=== PATIENT | female | born 1960 | race Caucasian/White ===

== ENCOUNTER 2016-06-30 05:46 | Inpatient (IN) | payer OTHER ==
[2016-06-27 09:08] VITALS: BMI 20.6
--- NOTE | 2016-06-27 15:33 | PREOPHP ---
DATE OF ADMISSION: 06/30/2016 Patient to have surgery with Dr. Vinicius Kendrick on 06/30/2016. REASON FOR CONSULTATION: Consultation requested by Dr. Vinicius Kendrick for medical evaluation and cl earance of a 56-year-old woman about to undergo a decompressive laminectomy L4 and microdiskectomy at L4 and L5. Thank you, Dr. Kendrick, for allowing us to participate in the care of this patient. HISTORY OF PRESENT ILLNESS: Cristine Modi is a 56-year-old woman with problems with her back for a whil e now, secondary to a work injury. She is currently being admitted for correction of the above. In addition to her back issues, she has had arthroscopic surgery x2 on her left knee and open x3. S he has also had a hysterectomy and had an ovary removed. She also had breast augmentation and appen chica surgery. She has had 3 deliveries and they have all been vaginal. She has fractured her right foot toes several times. Other than that, she has really not had any significant medical hospitaliz ations. MEDICATIONS: She takes the following medications: 1. Trazodone 100 mg a day. 2. Gabapentin 300 mg a day. 3. Synthroid 125 mcg per day. 4. Duloxetine 90 mg per day, 60+30. 5. Actonel 5 mg a day. ALLERGIES: SHE IS SENSITIVE TO MORPHINE, and has no other allergies, to her knowledge. SOCIAL HISTORY: The patient is , has 3 sons, 5 grandchildren, all in good health. She does not smoke. Alcohol socially. She does not drink coffee. Usually has no difficulty sleeping at [facility]. FAMILY HISTORY: Father at age 77 of MS. Mother is 71, in good health. Two siblings are in go od health Other than that, she knows of no family history of diabetes, heart, cancer, hypertension, stroke or thyroid issues. REVIEW OF SYSTEMS: HEENT: Periodic migraine headaches. CARDIORESPIRATORY: Denies any significant chest pain or shortness of breath. GASTROINTESTINAL: Does have hyperacidity and has been diagnosed with mild Crohn's disease. GENITOURINARY: No urgency or frequency. GYNECOLOGIC: Post hysterectomy. MUSCULOSKELETAL: Positive for back pain. NEUROPSYCHIATRIC: Occasional depression. Her general health has been good. PHYSICAL EXAMINATION: VITAL SIGNS: The patient's blood pressure was 120/80, pulse was 80 and regular, respirations were 1 8, temperature was 98.3. Height 5 foot 4 inches, weight 125 1/2 pounds. GENERAL: The patient was noted to be a well-developed, well-nourished female, alert and cooperative , in no apparent acute distress. Oriented to time, place, and person. HEAD, EARS, EYES, NOSE AND THROAT: Head was atraumatic. Eyes, pupils were equal, reactive to light and accommodation. Fundi were benign. Tympanic membranes were unremarkable. Nose was negative. Mouth was unremarkable. Fair oral hygiene was present. NECK: Supple, without any rigidity. Trachea was midline. Thyroid was within normal limits. Neck veins were flat. Carotid pulses were equal. No bruits were heard. BACK EXAM: Unremarkable. CHEST: Symmetrical. Bilateral breast implants were noted. No axillary masses being palpable. LUNGS: Clear to percussion and auscultation. HEART: PMI is fifth intercostal space at the midclavicular line. Regular sinus rhythm was noted. No significant murmurs, rubs, or gallops are being elicited. ABDOMEN: Soft, good bowel sounds were noted. No significant organomegaly, masses, or tenderness. GENITALIA: Normal female external genitalia. PELVIC/RECTAL EXAM: Per her own doctor, unremarkable. EXTREMITIES: Do not reveal any clubbing, edema or cyanosis. There were scars, however, on both knee s. Peripheral pulses were physiologic. SKIN: Moist and warm, without any eruptions. No gross lymphadenopathy was noted. NEUROLOGIC EXAM: Grossly intact. IMPRESSION: 1. Lumbar disk disease. 2. Osteoporosis. 3. Scoliosis. 4. Hypothyroidism. 5. Gastroesophageal reflux disease. 6. History of a diagnosis of systemic lupus, quiescent at this point. 7. Crohn's disease, also quiescent at this point. 8. Stable health. DISCUSSION: Review of laboratory and other data revealed the following: The patient's chemistries revealed normal electrolytes, BUN and creatinine. The patient's albumin was normal. Globulin was s lightly low. Liver function tests were normal. CBC revealed a minor anemia. UA, PT and PTT were w ithin normal limits. The patient's EKG was normal, as was her chest x-ray, which showed both degene rative joint disease and scoliosis, as well as bilateral breast implants, but no infiltrates and no acute cardiopulmonary changes. DISCUSSION: Dr. Kendrick, I see no contraindication in this patient undergoing the current proposed surgery under the desired form of anesthesia and I feel she is a suitable candidate at this particu lar point in time. I will be happy to follow her along with you during her stay at [facility]. Thank you again, Dr. Kendrick, for allowing us to participate in the care of this patient. Dictated By: ELIO ARAYA/ABDOUL Conf#: [id number] DID#: [id number]
[2016-06-30] VITALS (58 sets, daily range): BP systolic 71–120; BP diastolic 46–80; PULSE 76–108; RESP 10–24; Ht 162.6 cm; Wt 54.9 kg
[~2016-06-30] VITALS: Ht 162.6 cm; Wt 54.9 kg
[2016-06-30] MEDS: LACTATED RINGER'S 1,000 ML IV* SCH (06:30)
[2016-06-30] MEDS ORDERED: CEFAZOLIN 2 GM/50 ML (PMX) 50 ML IVPB SCH (06:30)
[2016-06-30] MEDS ORDERED: LACTATED RINGER'S 1,000 ML IV* SCH (06:30)
[2016-06-30] MEDS ORDERED: POLYMYXIN/BACITRACIN 1L IRRIG ONE (06:56)
[2016-06-30] MEDS ORDERED: GELATIN SIZE 100 SPONGE ONE (06:56)
[2016-06-30] MEDS ORDERED: BUPIVACAINE 0.25% (MPF) 10 ML 10 ML VIAL ONE (06:56)
[2016-06-30] MEDS ORDERED: THROMBIN 5000 UNIT VIAL ONE (06:56)
[2016-06-30] MEDS ORDERED: EPHEDrine SULFATE 50 MG/5 ML SYG ONE (07:00)
[2016-06-30] MEDS ORDERED: PROPOFOL 20 ML ONE (07:05)
[2016-06-30] MEDS ORDERED: FENTAnyl 50 MCG/ML VIAL ONE ×2 (07:05→08:14)
[2016-06-30] MEDS ORDERED: LIDOCAINE 2% (SDV) 5 ML INJ ONE (07:05)
[2016-06-30] MEDS ORDERED: MIDAZOLAM 1 MG/ML 2 ML INJ ONE (07:05)
[2016-06-30] MEDS ORDERED: SUCCINYLCHOLINE CHLORIDE 100 MG/5 ML SYG IV ONE (07:05)
[2016-06-30] MEDS ORDERED: ROCURONIUM 50 MG INJ ONE (07:05)
[2016-06-30] MEDS ORDERED: OCULAR LUBRICANT 3.5 GM OPH OINT ONE (07:06)
[2016-06-30] MEDS ORDERED: SCOPOLAMINE 1.5 MG PATCH ONE (07:06)
[2016-06-30] MEDS ORDERED: DULO60CA6 PO (07:09)
[2016-06-30] MEDS ORDERED: RISE5TAB PO (07:33)
[2016-06-30] MEDS ORDERED: GABA300S PO (07:33)
[2016-06-30] MEDS ORDERED: LEVO125T75 PO (07:33)
[2016-06-30] MEDS ORDERED: TRAZ100T15 PO (07:33)
[2016-06-30] MEDS ORDERED: ONDANSETRON 4 MG INJ ONE (07:35)
[2016-06-30] MEDS ORDERED: DEXAMETHASONE 4 MG/ML 1 ML INJ ONE (07:35)
[2016-06-30] MEDS ORDERED: PHENYLephrine (100 MCG/ML) 5ML SYG ONE (07:50)
[2016-06-30] MEDS ORDERED: ACETAMINOPHEN 1000MG/100ML IV 100 ML ONE (08:07)
[2016-06-30] MEDS ORDERED: ONDANSETRON 4 MG INJ IV PRN ×2 (08:30→09:30)
[2016-06-30] MEDS ORDERED: HYDROmorphONE (0.2 MG/ML) 10ML SYG IV PRN (08:30)
[2016-06-30] MEDS ORDERED: MEPERIDINE 25 MG INJ IV PRN (08:30)
[2016-06-30] MEDS ORDERED: METOCLOPRAMIDE 10 MG INJ IV PRN (08:30)
[2016-06-30] MEDS ORDERED: FENTAnyl 50 MCG/ML VIAL IV PRN (08:30)
[2016-06-30] MEDS ORDERED: DIPHENHYDRAMINE 50 MG INJ IV PRN (08:30)
[2016-06-30] MEDS ORDERED: PROCHLORPERAZINE 10 MG INJ IV PRN (08:30)
--- NOTE | 2016-06-30 09:29 | RADRPT ---
PROCEDURE: XR Lumbar Spine. CLINICAL INDICATION: Intraoperative evaluation. TECHNIQUE: Single cross-table lateral view of the lumbar spine is available for review COMPARISON: None available. FINDINGS: There is metallic operative hardware overlying the inferior endplate of the L3 vertebral body and mueller perior plate of the L5 vertebral body. There is grade II anterolisthesis of L4 on L5. IMPRESSION: Metallic operative hardware overlying the inferior endplate of the L3 vertebral body and superior pl ate of the L5 vertebral body. Grade II anterolisthesis of L4 on L5. RPTAT: AA .Lenny Leiva MD, Date Time Electronically viewed and signed by .Lenny Leiva MD, on 06/30/2016 09:29 .P/
[2016-06-30] MEDS ORDERED: ZOLPIDEM 5 MG TAB PO PRN (09:30)
[2016-06-30] MEDS ORDERED: PROCHLORPERAZINE 10 MG TAB PO PRN (09:30)
[2016-06-30] MEDS ORDERED: HYDROCODONE/APAP (5/325) TAB PO PRN (09:30)
[2016-06-30] MEDS ORDERED: NACL 0.9% 3 ML SYG IV SCH (09:30)
[2016-06-30] MEDS ORDERED: DIAZEPAM 5 MG/ML SYG IM PRN (09:30)
[2016-06-30] MEDS ORDERED: DIPHENHYDRAMINE 50 MG CAP PO PRN (09:30)
[2016-06-30] MEDS ORDERED: NALOXONE (0.4 MG/ML) INJ IV PRN (09:30)
[2016-06-30] MEDS ORDERED: TRIMETHOBENZAMIDE 100 MG/ML VIAL IM PRN (09:30)
[2016-06-30] MEDS ORDERED: BETHANECHOL 25 MG TAB PO PRN (09:30)
--- NOTE | 2016-06-30 09:31 | RADRPT ---
PROCEDURE: XR Lumbar Spine. CLINICAL INDICATION: Intraoperative evaluation. TECHNIQUE: Single cross-table lateral view of the lumbar spine is available for review COMPARISON: Exam dated 06/30/2016. FINDINGS: There is metallic operative hardware overlying the posterior elements at the L4-5 intervertebral dis k space. Grade II anterolisthesis of L4 on L5 is unchanged. IMPRESSION: Metallic operative hardware overlying the posterior elements at the L4-5 intervertebral disk space. RPTAT: GG .Lenny Leiva MD, Date Time Electronically viewed and signed by .Lenny Leiva MD, on 06/30/2016 09:30 .P/
[2016-06-30] MEDS: HYDROmorphONE (0.2 MG/ML) 10ML SYG IV PRN ×5 (09:42→10:13)
[2016-06-30] MEDS ORDERED: AL HYDROX/MG HYDROX/SIMETH 30 ML CUP PO PRN (10:00)
[2016-06-30] MEDS ORDERED: HYDROmorphONE 0.2 MG/ML PCA IV SCH (10:00)
[2016-06-30] MEDS ORDERED: ACETAMINOPHEN 325 MG TAB PO PRN (10:00)
[2016-06-30] MEDS: PHENYLephrine (100 MCG/ML) 5ML SYG IV PRN ×3 (11:07→11:19)
[2016-06-30] MEDS ORDERED: EPHEDrine SULFATE 50 MG/5 ML SYG IV PRN (11:30)
--- NOTE | 2016-06-30 11:42 | OPR ---
DATE OF OPERATION: 06/30/2016 PREOPERATIVE DIAGNOSIS: Lumbar spinal stenosis at L4-L5 with degenerative spondylolisthesis and rad iculopathy. POSTOPERATIVE DIAGNOSIS: Lumbar spinal stenosis at L4-L5 with degenerative spondylolisthesis and ra diculopathy. OPERATION PERFORMED: 1. Central decompressive laminectomy at L4. 2. Partial central decompression laminectomy at L5 (superiorly). 3. Baxano transforaminal root decompression at L4 on the left. 4. Medial facetectomy and foraminotomy, L4-5 bilaterally. 5. Cosmetic wound closure (3 cm). 6. Lateral localized lumbar radiographs (2). 7. Intraoperative nerve monitoring (75 minutes). SURGEON: Vinicius Kendrick MD LOG WASHER: Marizol Negro PA-C ANESTHESIA: General endotracheal. ANESTHESIOLOGIST: Dr. Roxann MD ESTIMATED BLOOD LOSS: 20 mL, none replaced. DRAINS: Two medium Hemovac drains employed. COMPLICATIONS: None. PERTINENT HISTORY AND PHYSICAL: This is a 56-year-old female with persistent back and lower extremi ty complaints, left greater than right, which has been unrelieved by conservative management followi ng an industrial injury of 06/26/2015. She had extensive care since that time, she has remained sym ptomatic. She has undergone a number of diagnostic studies including an MRI of the lumbar spine, wh ich demonstrated a degenerative spondylolisthesis at L4-L5, (grade I) with marked canal stenosis at that level and foraminal stenosis at L4-5, left greater than right. Treatment options were discusse d with the patient, she elected to proceed with surgery. OPERATIVE FINDINGS AT SURGERY: A marked central stenosis at L4-L5 was confirmed along with some jayson ateral foraminal stenosis, left greater than right. The baseline intraoperative nerve monitoring re vealed a decrease in the left L4 potential of 50%, and the left L5 potential of 40%. These both ret urned to normal at the completion of surgery. OPERATIVE PROCEDURE: With the patient in supine position after satisfactory induction of general en dotracheal anesthesia by Dr. Hackett, the patient was turned to the prone kneeling position on the [facility] frame. All carefully pressure points were carefully padded. The back was prepped and draped i n usual sterile fashion. Athrombic pumps were applied to the legs below the knees to prevent venous stasis during and after the procedure. Two spinal needles were placed next to what was felt to be the L4 and L5 spinous processes, lateral roentgenogram was taken which confirmed anatomic localizati on. A 3 cm incision then carried out midline over the spinous process of L4 after skin was infiltra jaydon with 0.25% Marcaine without epinephrine for postoperative analgesia. Superficial retractors wer e placed and hemostasis secured with electrocautery. Throughout procedure, copious amounts of antib acterial irrigating solution were used to periodically irrigate the wound. The fascia was incised i n midline with a hot knife and a bilateral subperiosteal dissection carried out at L4. Deep retract ors were placed and deep hemostasis secured with electrocautery. A second intraoperative radiograph was taken with Tavo clamp placed in what was felt to be the spi nous process of L4 was confirmed with second x-ray. A central decompressive laminectomy at L4 was t hen carried out using a Lucian right-angle bone rongeur, Leksell rongeur, Kerrison punches and cure ttes. Ligamentum flavum was excised with sharp dissection. The operating microscope was then moved into place. A medial facetectomy and foraminotomy was accomplished using small hand osteotome, mal let, Kerrison punches and curettes. At this point, there still appeared to be some distal foraminal stenosis at L4 on the left and the Baxano instrumentation was brought onto the field. The Ipsi pro be was placed into the left L4 foramen, and the guidewire passed in the usual fashion. The neuro pr obe was then used to isolate the exiting L4 nerve root. With this having been assured, a 7.5 mm Bax ano rasp was then selected and inserted into the foramen and multiple reciprocations were carried ou t to enlarge the posterior aspect of the foramen. The instrumentation was withdrawn, 20 mL of irrig ating solution used to flood the foramen and hemostasis secured with bipolar electrocautery on low s etting. Anesthesiologist then asked to perform a Valsalva maneuver at 40 mmHg and no spinal fluid l eakage was noted. The wound was then closed in layers over 2 medium Hemovac drains, one below the f ascia and one above the fascia using #1 Vicryl vtjaoo-kx-uzhtn approximating sutures in deep paralum bar musculature and deep fascia of back, 2-0 Vicryl subcutaneous approximating sutures in subcutaneo us tissue, and a 4-0 Vicryl subcuticular cosmetic closing suture on the skin. Dermabond and sterile compressive dressings were applied. Patient tolerated procedure well, was then turned to the supin e position onto her bed and extubated by Dr. Hackett. She was transported to the recovery room in sati sfactory condition. At the conclusion of the procedure, sponge, instrument, and needle counts were all correct. NEED FOR CLIENT SERVER DEVELOPER: NEED FOR CLIENT SERVER DEVELOPER: During this spinal surgical procedure, m y wellness assistant was used to retract and protect the spinal nerves and dural sac. My wellness assistant also emplo yed the suction catheters to evacuate blood from the surgical field to improve visualization of the neural structures. The wellness assistant was medically necessary to facilitate the completion of the surgery in a safe and expeditious manner. State of [place] regulations, as well as hospital bylaws, prec lude the use of non-licensed health care personnel such as operating room technicians, to perform th derrek functions. Throughout the procedure, neural monitoring was carried out by [employer] including EMG, SSEP and MEP monitoring of the L3, L4, L5 and S1 nerve roots bilaterally along with s austin cord potentials. These were interpreted by neurologist employed by [employer]. Dictated By: VINICIUS KENDRICK MD TM/ABDOUL Conf#: [id number] DID#: [id number] CC: ELIO BUTLER MD;*End*
[2016-06-30] MEDS: ALBUMIN HUMAN 5% 250 ML IV PRN ×2 (11:54→12:11)
[2016-06-30] MEDS: CEFAZOLIN 1 GM/50 ML (PMX) 50 ML IVPB SCH ×2 (13:46→18:21)
[2016-06-30] MEDS: DEXTROSE 5%-0.45% NACL 1,000 ML IV SCH (13:46)
[2016-06-30] MEDS: CEPASTAT LOZENGE MT PRN (13:52)
--- NOTE | 2016-06-30 13:59 | CONS ---
DATE OF ADMISSION: 06/30/2016 DATE OF CONSULTATION: TYPE OF CONSULTATION: Postop consult followup. Followup consultation done in the recovery room first. HISTORY OF PRESENT ILLNESS: The patient is alert, complaining of being thirsty, otherwise not compl aining of any pain. VITAL SIGNS: Reveal a normal blood pressure of 110/78, pulse of 76, temperature 97.8, pulse oximetr y 99%, respiratory rate 16. HEENT: Unremarkable. LUNGS: Clear. BACK: Reveals regular rhythm. IMPRESSION: 1. Status post lumbar disk surgery. 2. Osteoporosis. 3. Scoliosis. 4. Hypothyroidism. 5. Gastroesophageal reflux disease and Crohn's disease, quiescent. DISCUSSION: Plan is to reorder patient's preoperative medicines as well as follow her medically mariana ng with you. Thank you again, Dr. Kendrick, for allowing us to participate in care of this patient. Dictated By: ELIO BUTLER MD SS/NTS Conf#: [id number] DID#: [id number]
[2016-06-30] MEDS: DULOXETINE 30 MG CAP DR PO SCH (14:00)
[2016-06-30] MEDS: GABAPENTIN (50 MG/ML PO SYG) PO SCH (14:30)
[2016-06-30] MEDS: DIAZEPAM 5 MG TAB PO PRN ×2 (15:41→21:47)
[2016-06-30] MEDS: RISEDRONATE 5 MG TAB PO SCH (17:25)
[2016-06-30] MEDS ORDERED: LORAZEPAM 2 MG INJ IV PRN (19:00)
[2016-06-30] MEDS: traZODone 100 MG TAB PO SCH (20:45)
[2016-06-30] MEDS: RANITIDINE 150 MG TAB PO SCH (20:45)
[2016-06-30 21:15] LABS: PHOSPHORUS 3.3 mg/dl (2.5-4.9)
[2016-06-30 21:16] LABS: MAGNESIUM 1.4 mg/dl (1.7-2.5)
[2016-06-30] MEDS ORDERED: MAGNESIUM SULFATE 3 GM in SOD CHLORIDE 0.9% 100 ML IVPB ONE ×4 (22:00)
--- NOTE | 2016-06-30 23:27 | PN ---
DATE: SUBJECTIVE: Rapid response was called on patient because of continuous shaking of her left upper ex tremity. The patient just recently had back surgery for lumbar stenosis by Dr. Kwon and just re cently came up to the floor after general anesthesia. She remained very lethargic and woozy. The n gael had noted a jerk like motion of her left upper extremity that did not seem to be controlled an d seems to be almost concerning for probable seizures. Nursing reports that the patient was alert t hroughout the episode and was able to follow commands the whole time. The jerk like motion was stop ped for a little bit and then resumed again on its own. At the time of my arrival, the motions had stopped and despite ____ and a detailed neurologic exam, I could not reproduce said motion. PHYSICAL EXAMINATION: GENERAL: I found a very lethargic female who was mild confused in her speech likely secondary to me dication, but she was oriented to self, place, and person. HEENT: Head was normocephalic. Pupils were equal and reactive. NECK: Supple. CHEST: Clear. CARDIOVASCULAR: S1 and S2. No murmurs. ABDOMEN: Soft, nontender. EXTREMITIES: No edema. NEUROLOGIC: She was able to move all 4 extremities. She did not seem to have any sensation deficit s. SKIN: There was no obvious skin rash. LABORATORY DATA: Upon lab review, there were no classic findings. ASSESSMENT: Neurologic like motion, which could be secondary to anxiety, rule out probable myocloni c seizures. RECOMMENDATIONS: Put patient on seizure precautions with pads on the bedside. P.r.n. Ativan for s eizures. If motions recur, then patient will likely need to be started on probable IV Keppra for se izure prophylaxis, and will likely need an EEG as well as neurology consultation. However, seizures could be explained by medication side effect versus anxiety disorder. We will have to see how the patient does in house. I will also rule out electrolyte abnormalities. I ordered magnesium, phosph orus, and folic acid levels. I will defer to the primary team to follow up on this. I have reviewe d this with the nursing. I have spoken with the patient's son. I have spoken to the patient hersel f. I have answered their questions. Overall, critical care time has been about 35 minutes. Dictated By: LYLE JANG MD BA/NTS Conf#: [id number] DID#: [id number] CC: JIM KWON MD;*End*
[2016-07-01] MEDS: CEPASTAT LOZENGE MT PRN (01:30)
[2016-07-01] MEDS: CEFAZOLIN 1 GM/50 ML (PMX) 50 ML IVPB SCH ×2 (01:30→06:15)
[2016-07-01] MEDS: DEXTROSE 5%-0.45% NACL 1,000 ML IV SCH ×2 (04:35→05:22)
[2016-07-01 05:04] VITALS: BP 135/72; PULSE 80; RESP 19
[2016-07-01 05:46] LABS: HEMATOCRIT 26.6 % (37.0-47.0); HEMOGLOBIN 9.2 g/dl (12.0-16.0)
[2016-07-01 05:57] LABS: POTASSIUM 3.7 mmol/L (3.5-5.1)
[2016-07-01 06:00] LABS: CREATININE 0.78 mg/dl (0.44-1.00)
[2016-07-01 06:01] LABS: CALCIUM 8.3 mg/dl (8.4-10.2)
[2016-07-01] MEDS: LEVOTHYROXINE 125 MCG TAB PO SCH (06:15)
[2016-07-01] MEDS: LACTATED RINGER'S 1,000 ML IV* SCH (06:30)
--- NOTE | 2016-07-01 07:17 | PN ---
Date/Time of Note Date/Time of Note DATE: 07/01/16 TIME: 07:15 Assessment/Plan Lines/Catheters IV Catheter Type (from Nrsg): Peripheral IV Page in Place (from Nrsg): No Subjective 24 Hr Interval Summary The patient is postop day #1 following a decompressive laminectomy at L4 and the upper part of L5. Yesterday she had some involuntary movement of her arms and legs without loss of consciousness. She was seen by the rapid response team , and seizure precautions were recommended however the patient declined. She is comfortable this morning, and reports no more episodes of involuntary movements. Her a.m. labs are unremarkable this morning. Her examination reveals neurovascular structures are intact distally. She will be seen by physical therapy 4 times today for walker ambulation training until she is independent. Her Hemovac this morning had 120 cc, and will be left in place. Exam/Review of Systems Vital Signs Vitals Vital Signs Date Time Temp Pulse Resp B/P Pulse Ox O2 Delivery O2 Flow Rate FiO2 07/01/16 05:05 19 07/01/16 05:04 98.2 80 135/72 95 Nasal Cannula 2.0 Intake and Output 06/30/16 06/30/16 07/01/16 15:00 23:00 07:00 Intake Total 900 ml 480 ml 1786 ml Output Total 80 ml 700 ml 1320 ml Balance 820 ml -220 ml 466 ml Results Result Diagram: 07/01/16 0445 07/01/16 0445 JIM KWON MD Jul 01, 2016 07:17
[2016-07-01] MEDS ORDERED: BETHANECHOL 25 MG TAB PO PRN (08:00)
[2016-07-01 08:05] VITALS: BP 111/68; RESP 16
[2016-07-01] MEDS: DULOXETINE 30 MG CAP DR PO SCH (09:16)
[2016-07-01] MEDS: DOCUSATE SODIUM 100 MG CAP PO SCH ×2 (09:16→21:15)
[2016-07-01] MEDS: FERROUS SULFATE (EC) 325 MG TAB PO SCH ×2 (09:17→21:15)
[2016-07-01] MEDS: ASCORBIC ACID 500 MG TAB PO SCH ×2 (09:17→21:15)
[2016-07-01] MEDS: RANITIDINE 150 MG TAB PO SCH ×2 (09:17→21:15)
[2016-07-01] MEDS: GABAPENTIN (50 MG/ML PO SYG) PO SCH (09:26)
[2016-07-01] MEDS ORDERED: INFLUENZA VIRUS VACCINE 0.5 ML SYG IM* ONE (10:00)
--- NOTE | 2016-07-01 14:51 | CONS ---
DATE OF ADMISSION: 06/30/2016 DATE OF CONSULTATION: TYPE OF CONSULTATION: Postop consult followup. SUBJECTIVE: Followup done approximately 7:50 a.m. The patient apparently had an episode overnight where a rapid response team was called. There was q uestion of whether or not the patient was having a seizure or any other abnormal activity. The luz ent was seen in consultation by Dr. Batista, who felt that this could have been either anxiety or a tristen r tonic-clonic seizure. The patient was placed on seizure precautions and appropriate orders were w ritten as well as possible neurologic consultation to be considered. This morning, the patient appe ared to be stable. PHYSICAL EXAMINATION: VITAL SIGNS At the time of my evaluation revealed temperature of 98.2, pulse of 80, respirations 20 , blood pressure 135/72 and O2 saturation of 95% with nasal O2. HEENT: Unremarkable. LUNGS: Clear. HEART: Revealed a regular rhythm. ABDOMEN: Unremarkable. IMPRESSION: 1. Possible seizure overnight. 2. Status post lumbar spine surgery. 3. Osteoporosis. 4. Hypothyroidism. 5. Gastroesophageal reflux disease. 6. Rule out other central nervous system disorders. DISCUSSION: Review of laboratory and other data from this morning reveals the following: The patie nt's hemoglobin was 9.2, hematocrit of 26.5. Her chemistries were basically normal electrolytes, BU N, creatinine, glucose. Calcium was minimally low as was her magnesium. The patient was given some magnesium. This will be rechecked and possible neurology consultation in terms of her potential se izure disorder. Condition when I saw her is relatively stable. Dictated By: ELIO ARAYA/ABDOUL Conf#: [id number] DID#: [id number]
--- NOTE | 2016-07-01 15:53 | RADRPT ---
PROCEDURE: CT Brain without contrast. CLINICAL INDICATION: Encephalopathy. Seizure. TECHNIQUE: A CT of the brain without contrast was performed utilizing axial sections from the skul l base through the vertex. The patient was scanned without intravenous contrast enhancement. Sagitta l and coronal reformatted images were obtained using the data from the axial images. Total exam DLP is 630.20 mGy-cm. CTDIvol is 44.97 mGy. One or more of the following dose reduction techniques we re used: Automated exposure control, adjustment of the mA and/or kV according to patient size, use o f iterative reconstruction technique. COMPARISON: None available FINDINGS: There is normal lopez-white matter differentiation. The ventricles and cisterns are normal. There is no intracranial hemorrhage or space-occupying lesion. There is no skull fracture or lytic lesion. IMPRESSION: 1. Normal noncontrast CT scan of the brain. RPTAT: QQ .Ben Ching MD, MD Date Time Electronically viewed and signed by .Ben Ching MD, on 07/01/2016 15:53 .R/
--- NOTE | 2016-07-01 18:54 | CONS ---
DATE OF ADMISSION: 06/30/2016 DATE OF CONSULTATION: 07/01/2016 TYPE OF CONSULTATION: Neurology. Thank you, Dr. Andrew, for your kind referral for evaluation of encephalopathy. HISTORY OF PRESENT ILLNESS: The patient is a 56-year-old lady with past medical history of chronic low back pain who was admitted for decompressive laminectomy at L4 level, partial central decompress ion at L5, facetectomy and foraminotomy L4-L5 surgery was performed on 06/30/2016. Post-surgically was evaluated by primary MD but the night following the surgery, the patient was evaluated by a rapi d response team with Dr. Batista because of patient's continuous shaking of the left upper extremity. A ccording to her notes she was admitted to the floor, was lethargic and woozy with jerk-like movement s of the left upper extremity noted by the nurse. By nursing, the patient was still awake through t he episode of jerk-like movements, was able to follow commands the whole time. By the time Dr. Batista came to evaluate the patient, the movement stopped. She was mildly confused according to Dr. Batista bu t oriented x3. Today, the patient is more confused according to the primary MD. Her pain medicatio ns were put on hold. She had CAT scan of the head which did not show any abnormality. It was done without contrast and EEG was requested. MEDICATIONS: 1. Colace. 2. Vitamin C. 3. Iron. 4. Synthroid. 5. Zantac. 6. Trazodone 100 at bedtime. 7. Actonel. 5. Gabapentin 300 daily. 6. Cymbalta 90 mg. 7. ALLERGIES: SHE IS ALLERGIC TO MORPHINE. 8. Initially was started yesterday on Dilaudid pump. PAST MEDICAL HISTORY: Other past medical history includes hypothyroidism. SOCIAL HISTORY: Alcohol socially. No known tobacco, or drug use. FAMILY HISTORY: Noncontributory. PHYSICAL EXAMINATION: VITAL SIGNS: Today, temperature 98.3, pulse 74, respirations 18, blood pressure 111/68. GENERAL: Not in acute distress, lying in bed. HEENT: Normocephalic, atraumatic head. NECK: No carotid bruits. No thyromegaly. LUNGS: Clear to auscultation bilaterally. CARDIAC: Normal cardiac rhythm and sounds. ABDOMEN: Soft. EXTREMITIES: No cyanosis, clubbing or edema. NEUROLOGIC: Mental status examination shows patient is awake, oriented x2 with fluent speech. Cran ial nerve examination shows intact visual schulte bilaterally. Pupils reactive from 4 to 3 mm bilate rally. Extraocular movements intact without nystagmus. Symmetrical face. Preserved facial strengt h and sensation. Tongue is in midline. Palate elevates symmetrically. Motor strength examination seems to be preserved in all extremities and lower extremities as well. There is some pain with mov ements of lumbar spinal pain with movements of the leg. Sensory examination grossly intact to light touch. Deep tendon reflexes 2+ throughout. Downgoing toes bilaterally. Coordination preserved on [id number]-ek-mnfwfe testing. No dysmetria or tremor. IMPRESSION: Encephalopathy, status post lumbar surgery yesterday, questionable focal seizure versus tremor in the left upper extremity observed last night. EEG is pending. I will obtain MRI of the brain to exclude minor structural abnormality, although CAT scan did not show any problems. Patient denied any previous history of seizures to me. No jerk-like movements observed today. I will not start any anti-seizure medications. Most likely encephalopathy relates to surgery/anesthesia/pain m edications which were put on hold now. LABORATORY DATA: Forgot to mention the patient's labs shows hemoglobin 9.2, hematocrit 26. Today's basic metabolic panel: Sodium 145. The rest essentially within normal limits. I will also obtain CBC and comprehensive metabolic panel with ammonia level tomorrow. Dictated By: EDWARD PANDEY/ABDOUL Conf#: [id number] DID#: [id number]
[2016-07-01 19:14] VITALS: BP 152/79; RESP 18
[2016-07-01] MEDS: traZODone 100 MG TAB PO SCH (21:15)
--- NOTE | 2016-07-01 22:34 | RADRPT ---
PROCEDURE: MRI Brain without contrast. CLINICAL INDICATION: Postsurgical encephalopathy with confusion TECHNIQUE: An MRI of the brain was performed on a high resolution hi-definition 3.0 Leticia MRI scan ner utilizing the following sequences: Sagittal and axial T1 weighted, axial T2 weighted, coronal GR E, axial diffusion weighted with ADC mapping, coronal GRE, and axial FLAIR. COMPARISON: CT brain 07/01/2016 FINDINGS: The scalp and calvarium are normal. The paranasal sinuses, orbits, and bilateral mastoid air cells a re normal. Mild incomplete pneumatization of the right mastoid air cells are present. The right mi ddle ear cavities appear clear.. No extra-axial fluid collections are present. The ventricles and s ulci are age appropriate. No evidence of intracranial hemorrhage, mass effect or midline shift is pr esent. No evidence for signal abnormalities are noted in the bilateral cerebral hemispheres,the brai n stem, and the cerebellum. No diffusion weighted abnormalities are seen to suggest the presence of acute ischemia or recent infarct. No hypointense signal abnormalities are seen on the GRE images to suggest the presence of blood degradation products. Normal flow voids are visible in the proxim al intracranial arteries and dural sinuses, indicating patency. IMPRESSION: 1. Normal noncontrast MRI of the brain. RPTAT: HDC .Tammy Peterson MD, MD Date Time Electronically viewed and signed by .Tammy Peterson MD, on 07/01/2016 22:34 .C/
[2016-07-01 22:42] LABS: ADD UMIC NO; URINE BILIRUBIN (Dip) NEGATIVE (NEGATIVE); URINE BLOOD (Dip) NEGATIVE (NEGATIVE); URINE COLOR LT. YELLOW (YELLOW); URINE GLUCOSE (Dip) NEGATIVE (NEGATIVE); URINE KETONES (Dip) NEGATIVE (NEGATIVE); URINE LEUKOCYTE ESTERASE (Dip) NEGATIVE (NEGATIVE); URINE NITRITE (Dip) NEGATIVE (NEGATIVE); URINE TOTAL PROTEIN (Dip) NEGATIVE (NEGATIVE); URINE UROBILINOGEN (Dip) 0.2 E.U./dL (0.1-1.0)
[2016-07-01 23:10] LABS: BENZODIAZEPINES Positive (NEGATIVE)
[2016-07-01 23:13] LABS: OPIATES Positive (NEGATIVE)
[2016-07-01 23:18] LABS: BARBITURATES Negative (NEGATIVE); CANNABINOIDS Negative (NEGATIVE); COCAINE Negative (NEGATIVE)
[2016-07-02] MEDS: DEXTROSE 5%-0.45% NACL 1,000 ML IV SCH ×3 (01:22→21:22)
[2016-07-02 05:22] LABS: BASOPHILS % 0.3 % (0.0-2.0); EOSINOPHILS % 0.4 % (0.0-7.0); HEMATOCRIT 27.2 % (37.0-47.0); HEMOGLOBIN 9.5 g/dl (12.0-16.0); LYMPHOCYTES # 0.8 10^3/ul (0.8-2.9); LYMPHOCYTES % 16.2 % (15.0-51.0); MEAN CORPUSCULAR HEMOGLOBIN 31.7 pg (29.0-33.0); MEAN CORPUSCULAR VOLUME 90.5 fl (82.0-101.0); MEAN PLATELET VOLUME 8.2 fl (7.4-10.4); MONOCYTE # 0.4 10^3/ul (0.3-0.9); MONOCYTES % 8.3 % (0.0-11.0); NEUTROPHIL # 3.7 10^3/ul (1.6-7.5); NEUTROPHILS % 74.8 % (39.0-77.0); PLATELET COUNT 129 10^3/UL (140-440); RED BLOOD COUNT 3.01 10^6/ul (4.20-5.40); RED CELL DISTRIBUTION WIDTH 12.3 % (11.5-14.5); UNCORRECTED WBC 4.9 10^3/ul (4.8-10.8); WHITE BLOOD COUNT 4.9 10^3/ul (4.8-10.8)
[2016-07-02 05:23] VITALS: BP 130/71; RESP 20
[2016-07-02 05:28] LABS: ALBUMIN 3.2 g/dl (3.3-4.9)
[2016-07-02 05:29] LABS: POTASSIUM 3.9 mmol/L (3.5-5.1)
[2016-07-02 05:31] LABS: ALBUMIN/GLOBULIN RATIO 1.39; BILIRUBIN,INDIRECT 0.6 mg/dl (0-1.1); BILIRUBIN,TOTAL 0.6 mg/dl (0.2-1.3); CALCIUM 8.7 mg/dl (8.4-10.2); CREATININE 0.77 mg/dl (0.44-1.00); TOTAL PROTEIN 5.5 g/dl (6.1-8.1)
[2016-07-02 05:32] LABS: CONDITION 1; MAGNESIUM 1.8 mg/dl (1.7-2.5)
[2016-07-02] MEDS: LACTATED RINGER'S 1,000 ML IV* SCH (05:45)
[2016-07-02] MEDS: LEVOTHYROXINE 125 MCG TAB PO SCH (06:45)
--- NOTE | 2016-07-02 07:00 | PN ---
Date/Time of Note Date/Time of Note DATE: 07/02/16 TIME: 06:57 Assessment/Plan Lines/Catheters IV Catheter Type (from Nrsg): Saline Lock Page in Place (from Nrsg): No Subjective 24 Hr Interval Summary The patient is postop day #2 following a decompressive laminectomy at L4 in the upper part of L5. She was seen in neurologic consultation by Dr. Slade, and a CT of the brain and MRI of the brain were both ordered and have been completed. The official report of both studies is that they are within normal limits. She appears to be more comfortable this morning. Her morning labs show a hypoproteinemia. She also has a thrombocytopenia. Her examination today is unchanged. Her Hemovac had minimal output, and was discontinued. Her wound is clean and dry and was redressed. Plan is for her to be ambulated by physical therapy until she is independent. Exam/Review of Systems Vital Signs Vitals Vital Signs Date Time Temp Pulse Resp B/P Pulse Ox O2 Delivery O2 Flow Rate FiO2 07/02/16 05:23 98.0 87 20 130/71 97 07/01/16 08:20 Nasal Cannula 2.0 Intake and Output 07/01/16 07/01/16 07/02/16 15:00 23:00 07:00 Intake Total 800 ml 1000 ml Output Total 1440 ml 1060 ml Balance -640 ml -60 ml Results Result Diagram: 07/02/16 0433 07/02/16 0433 JIM KWON MD Jul 02, 2016 07:00
[2016-07-02] MEDS: RISEDRONATE 5 MG TAB PO SCH ×2 (07:29→17:44)
[2016-07-02 07:51] VITALS: BP 126/78; RESP 18
[2016-07-02] MEDS: RANITIDINE 150 MG TAB PO SCH ×2 (08:22→21:28)
[2016-07-02] MEDS: FERROUS SULFATE (EC) 325 MG TAB PO SCH ×3 (08:22→21:28)
[2016-07-02] MEDS: DOCUSATE SODIUM 100 MG CAP PO SCH ×2 (08:22→21:28)
[2016-07-02] MEDS: DIAZEPAM 5 MG TAB PO PRN ×2 (08:22→13:37)
[2016-07-02] MEDS: ASCORBIC ACID 500 MG TAB PO SCH ×2 (08:22→21:29)
[2016-07-02] MEDS: GABAPENTIN (50 MG/ML PO SYG) PO SCH (08:25)
[2016-07-02] MEDS: DULOXETINE 30 MG CAP DR PO SCH (08:33)
--- NOTE | 2016-07-02 10:21 | CONS ---
DATE OF ADMISSION: 06/30/2016 DATE OF CONSULTATION: 07/02/2016 TYPE OF CONSULTATION: Postoperative consult followup. HISTORY OF PRESENT ILLNESS: Patient seen approximately 7:40 a.m. The patient much more alert than l ast several days. Has recognition, knows where she is, seems much improved. PHYSICAL EXAMINATION: VITAL SIGNS: Revealed the following: Temperature is 98.1, pulse 82, respirations 18, blood pressur e 125/78, O2 sat 98%. HEENT: Unremarkable. LUNGS: Clear. BACK: Reveals regular rhythm. The rest of the exam is unremarkable. IMPRESSION: 1. Status post lumbar spine surgery. 2. Possible metabolic encephalopathy last several days either secondary to anesthesia or other caus e, improving at this point. 3. Stable. DISCUSSION: Review of laboratory and other data reveals the following: The patient's CBC reveals h emoglobin of 9.5, hematocrit of 27.2 with a normal white count. Chemistries revealed normal electro lytes, BUN, creatinine and liver function tests as well as a normal ammonia level. Patient apparently is coming out of it, needs to be ambulated, has not been successfully ambulated a s yet and workup is underway. Neurology consultation appreciated. Thank you again, Dr. Kendrick, for allowing us to participate in the care of this patient. Dictated By: ELIO ARAYA/ABDOUL Conf#: [id number] DID#: [id number]
[2016-07-02] MEDS: HYDROCODONE/APAP (5/325) TAB PO PRN ×3 (13:38→21:28)
[2016-07-02 20:35] VITALS: BP 107/70; RESP 18
[2016-07-02] MEDS: traZODone 100 MG TAB PO SCH (21:29)
[2016-07-03] MEDS: HYDROCODONE/APAP (5/325) TAB PO PRN ×4 (01:22→15:27)
[2016-07-03] MEDS: LACTATED RINGER'S 1,000 ML IV* SCH (05:38)
[2016-07-03] MEDS: LEVOTHYROXINE 125 MCG TAB PO SCH (06:21)
[2016-07-03] MEDS: DEXTROSE 5%-0.45% NACL 1,000 ML IV SCH (07:22)
--- NOTE | 2016-07-03 07:27 | PN ---
Date/Time of Note Date/Time of Note DATE: 07/03/16 TIME: 07:25 Assessment/Plan Lines/Catheters IV Catheter Type (from Nrs): Saline Lock Page in Place (from Nrs): No Subjective 24 Hr Interval Summary Patient is doing well postop day #3 from lumbar decompression. She is alert and oriented. She has been up ambulating with physical therapy. She reports improvement of her preop symptoms. Plan today is for her to progress ambulation physical therapy. Exam/Review of Systems Vital Signs Vitals Vital Signs Date Time Temp Pulse Resp B/P Pulse Ox O2 Delivery O2 Flow Rate FiO2 07/02/16 20:40 96 Room Air 07/02/16 20:35 98.6 94 18 107/70 07/01/16 08:20 2.0 Intake and Output 07/02/16 07/02/16 07/03/16 14:59 22:59 06:59 Intake Total 900 ml 1200 ml Output Total 1100 ml 1100 ml Balance -200 ml 100 ml Results Result Diagram: 07/02/16 0433 07/02/16 0433 ALBA REGAN Jul 03, 2016 07:26
[2016-07-03] MEDS ORDERED: BISACODYL 10 MG SUPP PR PRN (07:30)
[2016-07-03] MEDS ORDERED: NA PHOSPHATE/BIPHOS 133 ML ENEMA PR ONE (07:30)
[2016-07-03 07:54] VITALS: BP 117/75; RESP 18
[2016-07-03] MEDS: DULOXETINE 30 MG CAP DR PO SCH (09:14)
[2016-07-03] MEDS: ASCORBIC ACID 500 MG TAB PO SCH (09:14)
[2016-07-03] MEDS: RANITIDINE 150 MG TAB PO SCH (09:15)
[2016-07-03] MEDS: FERROUS SULFATE (EC) 325 MG TAB PO SCH ×2 (09:15→13:57)
[2016-07-03] MEDS: DOCUSATE SODIUM 100 MG CAP PO SCH (09:15)
--- NOTE | 2016-07-03 11:32 | CONS ---
DATE OF ADMISSION: 06/30/2016 DATE OF CONSULTATION: POSTOPERATIVE CONSULTATION FOLLOWUP HISTORY OF PRESENT ILLNESS: The patient seen this morning, more alert, did get out of bed yesterday twice, is concerned about being home alone. Other than that though, she is certainly improving com pared to the immediate postop period. OBJECTIVE: VITAL SIGNS: The patient's vital signs reveals the following: Temperature 98.6, pulse 67, respirat ions 18, blood pressure 117/75, O2 sat 97% on room air. HEENT: Unremarkable. LUNGS: Clear. HEART: Unremarkable. ABDOMEN: Unremarkable. IMPRESSION: 1. Status post lumbar spine surgery. 2. Metabolic encephalopathy, resolved. The rest of the diagnoses same as before. PLAN: Per Dr. Kendrick, medically the patient is stable. It may be worthwhile to have the case man ager in terms of the patient's home situation and evaluation. Medically, the patient is improving a nd doing much better. Dictated By: ELIO ARAYA/ABDOUL Conf#: [id number] DID#: [id number]
[2016-07-03] MEDS: DIAZEPAM 5 MG TAB PO PRN (17:15)
--- NOTE | 2016-07-03 20:07 | NEURPT ---
DATE: 07/03/2016 ELECTROENCEPHALOGRAM INDICATION: A 56-year-old lady, status post recent lumbar spinal surgery, who during first postsurg ical night developed some tremulousness in the left upper extremity. Also was encephalopathic follo wing the surgery. DESCRIPTION OF PROCEDURE: Routine EEG was recorded digitally. Xzetm-cw-[id number] and shrms-pr-hyt eduard ages were recorded and reviewed. All impedances were measured and recorded. Cap electrodes were pl aced in accordance to International 10-20 system of electrode placement. FINDINGS: Symmetrically distributed background activity of low to medium amplitude ranging in frequ ency between 8 to 10 cycles per second was seen in the awake state. This activity attenuates with e ye opening. Photic stimulation produces normal driving. Hyperventilation elicits no epileptiform a ctivity. When the patient gets drowsy and falls asleep, background rhythm gets slightly less organi zed, partially replaced or intermixes with slower waves of 4 to 6 cycles per second. No epileptifor m transients were seen. No signs of ongoing electrographic seizures or lateralized slowing. IMPRESSION: Normal study. Please correlate clinically. Dictated By: EDWARD PANDEY/ABDOUL Conf#: [id number] DID#: [id number]
[2016-07-04] MEDS ORDERED: GABAPENTIN (50 MG/ML PO SYG) PO SCH (09:00)
== END 2016-07-03 18:05 | disposition home or self-care (01) | DRG 515 ==
LOC: REC 05:46 → EDSTATUS 07:00 → MS1 13:05
PROVIDERS: ADMIT Orthopaedic Surgery; ATTEND Orthopaedic Surgery
PROC: 01NB0ZZ Release Lumbar Nerve, Open Approach (ICD-10-PCS; principal; 2016-06-30 07:00)
DX: M48.06 Spinal stenosis, lumbar region (principal); G93.41 Metabolic encephalopathy; D69.6 Thrombocytopenia, unspecified; K50.90 Crohn's disease, unspecified, without complications; M32.9 Systemic lupus erythematosus, unspecified; M41.9 Scoliosis, unspecified; E77.8 Other disorders of glycoprotein metabolism; E03.9 Hypothyroidism, unspecified; M43.16 Spondylolisthesis, lumbar region; K21.9 Gastro-esophageal reflux disease without esophagitis; R25.9 Unspecified abnormal involuntary movements
CPT/HCPCS: 70450; 70551; 72020; 80048; 80053; 80307; 81003; 82140; 82962; 83735; 84100; 85014; 85018; 85025; 86850; 86900; 86901; 86920; 90686; 95819; 97116; 97161; 97530; J0131; J0330; J0690; J1100; J1170; J2060; J2175; J2250; J2370; J2405; J3010; J3475; J7042; J7120; P9045